=== PATIENT | male | born 1950 | race Caucasian/White ===

== ENCOUNTER → 2018-05-24 | Outpatient (CLI) | payer MEDICARE, BC ==
[2018-05-24 09:22] LABS: HEMATOCRIT 45.9 % (42.0-52.0); HEMOGLOBIN 15.5 g/dL (13.5-18.0); MEAN PLATELET VOLUME 11.7 fl (7.4-10.4); RED BLOOD COUNT 5.22 M/mm3 (4.20-5.60); WHITE BLOOD COUNT 11.2 K/mm3 (4.8-10.8)
[2018-05-24 09:32] LABS: ALBUMIN 4.3 g/dL (3.5-5.0); BUN/CREATININE RATIO 21.3 (6.0-26.0); CALCIUM 11.1 mg/dL (8.4-10.2); POTASSIUM 3.5 mmol/L (3.6-5.0); TOTAL BILIRUBIN 0.6 mg/dL (0.2-1.3); TOTAL PROTEIN 7.4 g/dL (6.3-8.2)
== END ==
LOC: RAD 08:19
PROVIDERS: Family Medicine
DX: Z13.6 Encounter for screening for cardiovascular disorders (principal); I10 Essential (primary) hypertension; E11.9 Type 2 diabetes mellitus without complications; E66.09 Other obesity due to excess calories; Z68.39 Body mass index [BMI] 39.0-39.9, adult; R53.83 Other fatigue; R68.89 Other general symptoms and signs